=== PATIENT | male | born 1930 | race Caucasian/White ===

== ENCOUNTER 2016-09-30 17:00 | Emergency (ER) | payer MEDICARE, OTHER ==
[~2016-09-30 17:00] MED LIST: AMLO5TAB2 PO; ASPI-482 PO; CELE200C PO; CLOP75TA PO; FINA5TAB4 PO; HYDR200T5 PO; MULT-658 PO; PRED5TAB PO; TAMS0.4C2 PO; THIA100T43 PO; VALS1TAB18 PO
[2016-09-30 17:52] VITALS: BP 163/90
--- NOTE | 2016-09-30 18:52 | PHYS DOC ---
Past Medical History Past Medical History: Other Additional Past Medical Histor: CANCER OF THROAT WITH RADIATION [place] Past Surgical History: Appendectomy Alcohol Use: None Drug Use: None Adult General Chief Complaint Chief Complaint: LOWER BACK PAIN OR INJURY HPI HPI Patient is a 85 year old male who presents with mild low back pain after falling 2 days ago. Patient states he was trying to help the , he states he lifted the to transfer her from wheelchair and fell on his buttocks. Patient denies any loss of consciousness. Patient states a week ago he also fell face forward and was not evaluated anywhere. Patient states he is on Plavix. Review of Systems Review of Systems Constitutional: Denies fever or chills [] Eyes: Facial contusions HENT: Denies nasal congestion or sore throat [] Respiratory: Denies cough or shortness of breath [] Cardiovascular: No additional information not addressed in HPI [] GI: Denies abdominal pain, nausea, vomiting, bloody stools or diarrhea [] : Denies dysuria or hematuria [] Musculoskeletal: Low back pain] Integument: Denies rash or skin lesions [] Neurologic: Denies headache, focal weakness or sensory changes [] Endocrine: Denies polyuria or polydipsia [] Allergies Allergies Allergies Coded Allergies Type Severity Reaction Last Updated Verified No Known Drug Allergies 12/23/14 No Physical Exam Physical Exam Constitutional: Well developed, well nourished, no acute distress, non-toxic appearance. [] HENT: Normocephalic, atraumatic, bilateral external ears normal, oropharynx moist, no oral exudates, nose normal. [] Eyes: PERRLA, EOMI, conjunctiva normal, patient has mild periorbital ecchymosis bilaterally. Neck: Normal range of motion, no tenderness, supple, no stridor. [] Cardiovascular:Heart rate regular rhythm, no murmur [] Lungs & Thorax: Bilateral breath sounds clear to auscultation [] Abdomen: Bowel sounds normal, soft, no tenderness, no masses, no pulsatile masses. [] Skin: Bruises to the upper face. Extremities: No tenderness, no cyanosis, no clubbing, ROM intact, no edema. [] Neurologic: Alert and oriented X 3, normal motor function, normal sensory function, no focal deficits noted. [] Cranial nerves II through XII intact Psychologic: Affect normal, judgement normal, mood normal. [] Current Patient Data Vital Signs Vital Signs Date Time Temp Pulse Resp B/P Pulse Ox O2 Delivery O2 Flow Rate FiO2 09/30/16 17:52 97.9 71 20 100 Room Air 97.9 EKG EKG [] Radiology/Procedures Radiology/Procedures [] Course & Med Decision Making Course & Med Decision Making Pertinent Labs and Imaging studies reviewed. (See chart for details) Patient is in the ED with facial contusions after falling a week ago and back pain after falling 2 days ago. Patient and daughter decided to sign out AMA stating they could not wait any longer for further testing. Both of them are alert and oriented and able to make decisions on their own. They were given risks of leaving AMA including . They state they will follow up with patient's PCP on Monday Dragon Disclaimer Dragon Disclaimer This electronic medical record was generated, in whole or in part, using a voice recognition dictation system. Departure Departure Impression: Primary Impression: Fall from standing Additional Impressions: Facial contusion Low back pain Disposition: AGAINST MEDICAL ADVICE Condition: STABLE Referrals: CARO ANN MD (PCP) Problem Qualifiers Primary Impression: Fall from standing Encounter type: initial encounter Qualified Code: W19.XXXA - Unspecified fall, initial encounter Additional Impressions: Facial contusion Encounter type: initial encounter Qualified Code: S00.83XA - Contusion of other part of head, initial encounter Low back pain Chronicity: acute Back pain laterality: bilateral Sciatica presence: without sciatica Qualified Code: M54.5 - Low back pain NATALIA PARIKH APRN Sep 30, 2016 18:52
== END 2016-09-30 18:51 | disposition left against medical advice (07) ==
LOC: ER 17:00
DX: S00.83XA Contusion of other part of head, initial encounter (principal); S00.12XA Contusion of left eyelid and periocular area, initial encounter; S00.11XA Contusion of right eyelid and periocular area, initial encounter; M54.5 Low back pain; W18.39XA Other fall on same level, initial encounter; Y93.F2 Activity, caregiving, lifting; Y92.89 Other specified places as the place of occurrence of the external cause; Y99.8 Other external cause status
CPT/HCPCS: 99281

== ENCOUNTER 2020-05-02 22:17 | Inpatient (IN) | payer MEDICARE, OTHER ==
[~2020-05-02] VITALS: Ht 185.4 cm; Wt 87.5 kg
[~2020-05-02 22:17] MED LIST changes: +AMLO-186 PO; -AMLO5TAB2 PO
[2020-05-02 23:03] LABS: BILIRUBIN,URINE NEGATIVE (NEG); CLARITY,URINE CLEAR; COLOR,URINE AMBER; NITRITE,URINE NEGATIVE (NEG); PH,URINE 5.5 (<5.0-8.0); PROTEIN,URINE NEGATIVE (NEG-TRACE); UROBILINOGEN,URINE 0.2 mg/dL (0.2 mg/dL)
[2020-05-02 23:11] LABS: BASO # 0.1 x10^3/uL (0.0-0.2); BASO % 1 % (0-3); EOS # 0.2 x10^3/uL (0.0-0.7); EOS % 2 % (0-3); HEMATOCRIT 30.1 % (39.0-53.0); HEMOGLOBIN 10.1 g/dL (13.0-17.5); LYMPH # 0.8 x10^3/uL (1.0-4.8); LYMPH % 9 % (24-48); MEAN CORPUSCULAR HEMOGLOBIN 30 pg (25-35); MEAN CORPUSCULAR HGB CONC 34 g/dL (31-37); MEAN CORPUSCULAR VOLUME 88 fL (79-100); MONO # 1.2 x10^3/uL (0.0-1.1); MONO % 13 % (0-9); NEUT # 6.6 x10^3/uL (1.8-7.7); NEUT % 75 % (31-73); PLATELET COUNT 255 x10^3/uL (140-400); RED BLOOD COUNT 3.41 x10^6/uL (4.30-5.70); RED CELL DISTRIBUTION WIDTH 14.6 % (11.5-14.5); WHITE BLOOD COUNT 8.8 x10^3/uL (4.0-11.0)
[2020-05-02 23:11] LABS: RBC,URINE 20-40 /HPF (0-2); WBC,URINE OCC /HPF (0-4)
[2020-05-02 23:12] LABS: AMORPHOUS SEDIMENT,UR PRESENT /HPF; BACTERIA,URINE 0 /HPF (0-FEW)
[2020-05-02 23:19] LABS: CREATININE 2.9 mg/dL (0.7-1.3); GFR 20.6; POTASSIUM 4.4 mmol/L (3.5-5.1)
--- NOTE | 2020-05-02 23:20 | PHYS DOC ---
Past Medical History Past Medical History: Other Additional Past Medical Histor: CANCER OF THROAT WITH RADIATION [place] Past Surgical History: Appendectomy Smoking Status: Former Smoker Alcohol Use: None Drug Use: None General Adult EDM: Chief Complaint: URINARY FREQUENCY HPI: HPI: Patient is a 89 year old male brought in by son for evaluation urinary frequency and altered mental status. Son states patient been going to the bathroom multiple x3-4 times an hour. Over the last 2 to 3 hours family has noticed increased confusion. Patient is alert to self and birthday only. Patient without focal neurological weakness. Review of Systems: Review of Systems: Unable to obtain due to confusion positive urinary frequency Neuro positive confusion Heart Score: Risk Factors: Risk Factors: DM, Current or recent (<one month) smoker, HTN, HLP, family history of CAD, obesity. Risk Scores: Score 0 - 3: 2.5% MACE over next 6 weeks - Discharge Home Score 4 - 6: 20.3% MACE over next 6 weeks - Admit for Clinical Observation Score 7 - 10: 72.7% MACE over next 6 weeks - Early Invasive Strategies Allergies: Allergies: Allergies Coded Allergies Type Severity Reaction Last Updated Verified No Known Drug Allergies 12/23/14 No Physical Exam: PE: Constitutional: Well developed, well nourished, no acute distress, non-toxic appearance. [] HENT: Normocephalic, atraumatic, bilateral external ears normal, oropharynx moist, no oral exudates, nose normal. [] Eyes: PERRLA, EOMI, conjunctiva normal, no discharge. [] Neck: Normal range of motion, no tenderness, supple, no stridor. [] Cardiovascular:Heart rate regular rhythm, no murmur [] Lungs & Thorax: Bilateral breath sounds clear to auscultation [] Abdomen: Bowel sounds normal, soft, no tenderness, no masses, no pulsatile masses. [] Skin: Warm, dry, no erythema, no rash. [] Back: No tenderness, no CVA tenderness. [] Extremities: No tenderness, no cyanosis, no clubbing, ROM intact, no edema. [] Neurologic: Alert , normal motor function, normal sensory function, no focal deficits noted. [] Psychologic: Affect normal, judgement normal, mood normal. [] Current Patient Data: Labs: Laboratory Tests Test 05/02/20 22:55 05/02/20 23:04 Urine Collection Type U cath Urine Color Magda Urine Clarity Clear Urine pH 5.5 (<5.0-8.0) Urine Specific Manito 1.015 (1.000-1.030) Urine Protein Negative mg/dL (NEG-TRACE) Urine Glucose (UA) Negative mg/dL (NEG) Urine Ketones (Stick) Negative mg/dL (NEG) Urine Blood Moderate (NEG) Urine Nitrite Negative (NEG) Urine Bilirubin Negative (NEG) Urine Urobilinogen Dipstick 0.2 mg/dL (0.2 mg/dL) Urine Leukocyte Esterase Negative (NEG) Urine RBC 20-40 /HPF (0-2) Urine WBC Occ /HPF (0-4) Urine Squamous Epithelial Cells Occ /LPF Urine Amorphous Sediment Present /HPF Urine Bacteria 0 /HPF (0-FEW) Urine Mucus Slight /LPF White Blood Count 8.8 x10^3/uL (4.0-11.0) Red Blood Count 3.41 x10^6/uL (4.30-5.70) L Hemoglobin 10.1 g/dL (13.0-17.5) L Hematocrit 30.1 % (39.0-53.0) L Mean Corpuscular Volume 88 fL (79-100) Mean Corpuscular Hemoglobin 30 pg (25-35) Mean Corpuscular Hemoglobin Concent 34 g/dL (31-37) Red Cell Distribution Width 14.6 % (11.5-14.5) H Platelet Count 255 x10^3/uL (140-400) Neutrophils (%) (Auto) 75 % (31-73) H Lymphocytes (%) (Auto) 9 % (24-48) L Monocytes (%) (Auto) 13 % (0-9) H Eosinophils (%) (Auto) 2 % (0-3) Basophils (%) (Auto) 1 % (0-3) Neutrophils # (Auto) 6.6 x10^3/uL (1.8-7.7) Lymphocytes # (Auto) 0.8 x10^3/uL (1.0-4.8) L Monocytes # (Auto) 1.2 x10^3/uL (0.0-1.1) H Eosinophils # (Auto) 0.2 x10^3/uL (0.0-0.7) Basophils # (Auto) 0.1 x10^3/uL (0.0-0.2) Laboratory Tests 05/02/20 23:04 EKG: EKG: [] Radiology/Procedures: Radiology/Procedures: [] Course & Med Decision Making: Course & Med Decision Making Pertinent Labs and Imaging studies reviewed. (See chart for details) [] Patient was evaluated for chief complaint. Work-up consisted of laboratory analysis. Nursing obtained urine via straight cath and drained 800 cc. Chong catheter was reinserted and placed to gravity. Patient treatment included IV fluids. Discussed patient with Dr. Aragno. Ultrasound renal ordered for the a.m. Consult to Dr. Shayla Urbina Disclaimer: Ciara Disclaimer: This electronic medical record was generated, in whole or in part, using a voice recognition dictation system. Departure Departure Impression: Primary Impression: Urinary tract infection Additional Impressions: Confusion Urinary retention Disposition: ADMITTED INPT THIS HOSP Admitting Physician: Neftali Arango Condition: STABLE Referrals: NEFTALI ARANGO MD (PCP) EDGAR PLATA DO May 02, 2020 23:20
[2020-05-02 23:27] LABS: ALBUMIN 3.5 g/dL (3.4-5.0); ALBUMIN/GLOBULIN RATIO 0.9 (1.0-1.7); TOTAL BILIRUBIN 0.5 mg/dL (0.2-1.0); TOTAL PROTEIN 7.6 g/dL (6.4-8.2)
[2020-05-02] MEDS ORDERED: ONDANSETRON PF 4 MG/2 ML VIAL. IV PRN (23:45)
[2020-05-03] MEDS ORDERED: IV NORMAL SALINE 1000ML BAG 1,000 ML IV ONE
[2020-05-03 02:10] VITALS: BP 138/65
[2020-05-03 04:58] LABS: CALCIUM 8.6 mg/dL (8.5-10.1); CREATININE 2.3 mg/dL (0.7-1.3); GFR 26.9; POTASSIUM 3.5 mmol/L (3.5-5.1)
[2020-05-03 06:59] VITALS: BP 141/59
--- NOTE | 2020-05-03 09:30 | RAD ---
Renal ultrasound complete: Reason for examination: Acute renal failure. Urinary retention. The right kidney measures 9.7 x 4.2 x 3.8 cm in greatest dimension with normal cortical medullary differentiation and good vascular flow. No focal mass or hydronephrosis is seen. The left kidney was not able to be visualized due to bowel gas. The bladder is not distended with Chong catheter in place. IMPRESSION: Limited examination. No focal abnormality seen at the visualized right kidney. The left kidney was unable to be visualized due to bowel gas. Electronically signed by: Desiree Sinclair MD (05/03/2020 9:27 AM) [id number]
[2020-05-03] MEDS ORDERED: MAGNESIUM HYDROXIDE 2,400 MG/30 ML ORAL.SUSP. PO PRN (10:30)
[2020-05-03] MEDS: IV 1/2 NORMAL SALINE 1,000 ML IV SCH ×2 (10:46→21:58)
[2020-05-03 11:00] VITALS: BP 145/86
--- NOTE | 2020-05-03 11:10 | PDOC ---
Provider Note Date of Service: DATE: 05/03/20 TIME: 11:10 Provider Note history and physical dictated # [id number] Justifications for Admission Other Justification CARO ANN MD May 03, 2020 11:10
--- NOTE | 2020-05-03 11:30 | HP ---
ADMIT DATE: 05/03/2020 LOCATION: He is in room 200. HISTORY OF PRESENT ILLNESS: The patient is an 89-year-old white male with a history of hypertension and chronic kidney disease stage 3 as well as memory problems, peripheral arterial disease, osteoarthritis, and benign prostatic hypertrophy, who was admitted to [facility] through Emergency Room on 05/03/2020 when the patient's son brought him to the Emergency Room at [facility] for increased urine frequency and altered mental status. Apparently, he was urinating 3-4 times an hour. In the last 2-3 hours prior to admission, the family noted increased confusion. He was subsequently admitted to the hospital for further evaluation and treatment. In the Emergency Room, he had a white count of 8.8 with hemoglobin 10.1 and his BUN was 67, creatinine 2.9. His baseline serum creatinine is 1.7. His urinalysis showed 20-40 red cells and occasional white blood cell. Chong catheter was placed. He had an ultrasound of his kidneys done, which showed no evidence of hydronephrosis on the right, bowel gas obscured visualization of the kidney on the left side. Today, the patient is sitting up in a chair and offers no complaints. He does have some chronic memory problems. Recent B12 and thyroid function tests were normal, done in the office. He is admitted for further evaluation of his acute kidney injury on top of chronic kidney disease and metabolic encephalopathy. ALLERGIES: None. MEDICATIONS: Prior to admission include amlodipine 5 mg every day, hydrochlorothiazide 12.5 mg every day, losartan 100 mg every day, and tamsulosin 0.4 mg every day. PAST MEDICAL HISTORY: Significant for cancer of the throat, treated with chemo and radiation therapy in 2004. He had bilateral carotid endarterectomy in 2014 and has had an appendectomy, cholecystectomy, tonsillectomy, and cataract extractions. He has hypertension, chronic kidney disease stage 3 with baseline serum creatinine 1.7, some chronic memory problems. He probably does have dementia at least mild cognitive deficits. He also has osteoarthritis, peripheral arterial disease manifested by the carotid endarterectomy, benign prostatic hypertrophy. SOCIAL HISTORY: He does not drink alcohol nor does he smoke cigarettes. He did drink in the past, I believe socially. He is . He uses a walker at home. FAMILY HISTORY: Noncontributory. REVIEW OF SYSTEMS: GENERAL: Denies any fever, chills or sweats in the last 3 days. CARDIOVASCULAR: No chest pain. PULMONARY: No cough or shortness of breath. GASTROINTESTINAL: No diarrhea. ENDOCRINE: No diabetes mellitus. SKIN: No rashes. The rest of systems reviewed are negative except as stated in history of present illness. PHYSICAL EXAMINATION: VITAL SIGNS: Temperature 97.7 degrees, heart rate 64, respiratory rate 19, blood pressure 141/59, oxygen saturation 99% on room air. HEENT: Eyes: Gaze is conjugate. Mouth: Tongue is midline. NECK: There is no cervical lymphadenopathy or thyroid enlargement. HEART: Reveals an S1, S2. There is no S3 or murmur. LUNGS: Clear posteriorly. ABDOMEN: Soft in sitting position. EXTREMITIES: Lower extremities without edema. SKIN: No rashes. NEUROLOGIC: He is hard of hearing, but answers questions appropriately. He has no focal weakness in the arms or legs. SKIN: No rashes. LABORATORY DATA: Review of his laboratory tests, urinalysis showed 20-40 red cells and occasional white blood cell. Sodium is 139, potassium 4.4, chloride 105, total CO2 of 25, BUN 67, creatinine was 2.9, blood sugar 108. Liver function tests normal. Albumin 3.5. Today, the sodium is 142, potassium 3.5, chloride 107, total CO2 of 23, BUN 60, creatinine 2.3 with a blood sugar 124 and a calcium level of 8.6. His white count was 8.8, hemoglobin 10.1 with a platelet count 355,000, 75 polys and 9 lymphocytes. I do not see a chest x-ray done or EKG report. ASSESSMENT: 1. Acute kidney injury on top of chronic kidney disease stage 3. Certainly, the acute kidney injury could be secondary to decreased oral fluid intake and also contributed to the hydrochlorothiazide and losartan in the setting of decreased fluid intake could have contributed to the acute kidney injury. There is no evidence of hydronephrosis. 2. Metabolic encephalopathy. 3. Suspected dementia. 4. Hypertension. 5. Peripheral arterial disease. 6. Anemia. PLAN: At this time is to consult Dr. Mcguire for Nephrology. We will start him on IV one-half normal saline at 75 mL an hour. Repeat CBC and BMP tomorrow and get some iron studies. We will order some physical and occupational therapy. Order SCDs for deep vein thrombosis prophylaxis. Discontinue the losartan and hydrochlorothiazide with acute kidney injury. We will continue amlodipine and tamsulosin. We will get a CAT scan of the head without contrast because of the memory problems. As mentioned, recent thyroid function test and B12 levels in the office were normal. CARO ANN MD DR: WALTER/rochelle JOB#: [id number] / [id number]
[2020-05-03] MEDS: TAMSULOSIN 0.4 MG CAP.ER.24H. PO SCH (11:55)
[2020-05-03] MEDS: amLODIPine BESYLATE 5 MG TABLET PO SCH (11:55)
--- NOTE | 2020-05-03 13:37 | RAD ---
Single view chest dated 05/03/2020. COMPARISON: None. CLINICAL INDICATION: Hypertension. FINDINGS: Single upright portable exam performed. Heart and mediastinal contours within normal limits. Lungs are somewhat hyperinflated but otherwise clear. No consolidation or pleural effusion. No pneumothorax. IMPRESSION: No acute radiographic abnormality. Electronically signed by: Neftali King MD (05/03/2020 1:34 PM) LUIS
--- NOTE | 2020-05-03 13:47 | RAD ---
CT head without contrast dated 05/03/2020. Comparison made to 11/24/2015. CLINICAL INDICATION: Confusion. TECHNIQUE: Routine axial imaging of the head performed without the administration of intravenous contrast. One or more of the following individualized dose reduction techniques were utilized for this examination: 1. Automated exposure control 2. Adjustment of the mA and/or kV according to patient size 3. Use of iterative reconstruction technique. FINDINGS: Ventricles and sulci are mildly prominent for age. No midline shift or mass effect. Minimal patchy low density in the deep/subcortical periventricular white matter. No hemorrhage or extra-axial collection. Posterior fossa and brainstem unremarkable. Moderate mucosal thickening of the right maxillary sinus. The visualized paranasal sinuses and mastoid air cells are otherwise clear. No apparent calvarial abnormality. IMPRESSION: 1. No evidence of acute intracranial hemorrhage or mass. 2. Mild chronic small vessel ischemic changes and atrophy. 3. Mild sinus disease. Electronically signed by: Neftali King MD (05/03/2020 1:44 PM) BETHEL
--- NOTE | 2020-05-03 14:14 | CONS ---
DATE OF CONSULTATION: REQUESTING PHYSICIAN: Dr. Arango. REASON FOR CONSULTATION: Renal failure. HISTORY OF PRESENT ILLNESS: An 89-year-old female with history of hypertension and chronic kidney disease stage 3. He currently is admitted with worsening renal function. He is felt to have underlying dementia. HOME MEDICATIONS: Include losartan, hydrochlorothiazide. There has been no nausea, vomiting, diarrhea. PAST MEDICAL HISTORY: Hypertension, chronic kidney disease stage 3, throat cancer, status post chemotherapy, radiation therapy in 2004, peripheral vascular disease. PAST SURGICAL HISTORY: Carotid endarterectomy 2014, appendectomy, cholecystectomy, tonsillectomy, cataract extractions, BPH. ALLERGIES: None. MEDICATIONS: Reviewed per medication list. FAMILY HISTORY: Noncontributory. SOCIAL HISTORY: The patient resides with assistance, is . Uses a walker. No alcohol use. Does not smoke cigarettes. REVIEW OF SYSTEMS: No headache, sinus problem, nasal drainage, epistaxis, change in vision or hearing. No difficulty swallowing. No fever, chills, cough, sputum production, hemoptysis. No chest pain, shortness of breath, PND, orthopnea, dyspnea on exertion. No abdominal pain. No nausea, vomiting, diarrhea. No seizures. PHYSICAL EXAMINATION: GENERAL APPEARANCE: The patient is awake, conversant. HEENT: Clear. Mouth is dry. NECK: No increased JVD. LUNGS: Clear. CARDIAC: Without S3 or rub. ABDOMEN: Soft, nontender, no bruits. EXTREMITIES: No edema. NEUROLOGIC: Nonfocal, nonlocalized. PSYCHIATRIC: Reduced attention to detail, appropriate affect. LABORATORY DATA: White count 8, hemoglobin 10, hematocrit 30. Sodium 142, potassium 3.5, chloride 107, CO2 of 23, BUN 60, creatinine 2.3, improved from creatinine of 2.9 on admission. IMPRESSION: 1. 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 2. Likely prerenal state due to reduced intravascular volume. RECOMMENDATIONS: IV fluid administration and trend labs. We will follow. CARO LUCAS MD DR: SUJATHA/rochelle JOB#: [id number] / [id number]
[2020-05-03 15:02] VITALS: BP 139/71
--- NOTE | 2020-05-03 15:03 | EKG ---
[facility] [address] [place] [address] Test Date: 2020-05-03 Test Time: 14:45:10 Pat Name: LOUISE GARCÍA Department: Room: 200 1 Gender: M Occ Ther: : 1930 Requested By: CARO ANN Order Number: [id number] Reading MD: Measurements Intervals [place] Rate: 58 P: 50 OR: 204 QRS: 17 QRSD: 104 T: 24 QT: 464 QTc: 459 Interpretive Statements SINUS RHYTHM NORMAL ECG RI6.02 No previous ECG available for comparison
[2020-05-03 19:00] VITALS: BP 162/82
--- NOTE | 2020-05-03 19:15 | NUR ---
Pt in bed assessment completed vss poc explained, pt assisted to the restroom with 1 assist and a walker, pt denied pain at time of assessment will resume care and continue to monitor pt.
[2020-05-03] MEDS: ACETAMINOPHEN 325 MG TABLET. PO PRN (23:01)
[2020-05-03 23:09] VITALS: BP 175/76
[2020-05-04 03:02] VITALS: BP 148/69
[2020-05-04 04:47] LABS: BASO # 0.1 x10^3/uL (0.0-0.2); BASO % 1 % (0-3); EOS # 0.3 x10^3/uL (0.0-0.7); EOS % 5 % (0-3); HEMATOCRIT 27.8 % (39.0-53.0); HEMOGLOBIN 9.7 g/dL (13.0-17.5); LYMPH % 15 % (24-48); MEAN CORPUSCULAR HEMOGLOBIN 31 pg (25-35); MEAN CORPUSCULAR HGB CONC 35 g/dL (31-37); MEAN CORPUSCULAR VOLUME 88 fL (79-100); MONO # 0.9 x10^3/uL (0.0-1.1); MONO % 13 % (0-9); NEUT # 4.7 x10^3/uL (1.8-7.7); NEUT % 67 % (31-73); PLATELET COUNT 209 x10^3/uL (140-400); RED BLOOD COUNT 3.16 x10^6/uL (4.30-5.70); RED CELL DISTRIBUTION WIDTH 14.2 % (11.5-14.5)
[2020-05-04 05:06] LABS: CALCIUM 8.6 mg/dL (8.5-10.1); CREATININE 1.6 mg/dL (0.7-1.3); GFR 40.9; POTASSIUM 3.7 mmol/L (3.5-5.1)
--- NOTE | 2020-05-04 06:03 | NUR ---
Pt up and down throughout the night c/o needing to void, pt pulling on malagon catheter, pt malagon cath dc'd and pt was bladder scanned pt had 1150 in bladder will reinsert malagon.
--- NOTE | 2020-05-04 06:49 | NUR ---
16Fr malagon catheter reinserted with 1250 tea color urine out will monitor pt.
[2020-05-04 07:00] VITALS: BP 156/84
[2020-05-04] MEDS: amLODIPine BESYLATE 5 MG TABLET PO SCH (09:37)
[2020-05-04] MEDS: TAMSULOSIN 0.4 MG CAP.ER.24H. PO SCH (09:37)
[2020-05-04] MEDS: ACETAMINOPHEN 325 MG TABLET. PO PRN (09:38)
--- NOTE | 2020-05-04 10:31 | PDOC ---
PROGRESS NOTES Date of Service DATE: 05/04/20 TIME: 10:28 Subjective Subjective feels better. bun and creatinine better. lab reviewed. bp is high and will increase amlodipine. ct head negative. Objective Objective Vital Signs Date Time Temp Pulse Resp B/P (MAP) Pulse Ox O2 Delivery O2 Flow Rate FiO2 05/04/20 09:37 68 156/84 05/04/20 07:00 97.1 20 100 Room Air 97.1 Intake and Output 05/04/20 07:00 Intake Total 1510 ml Output Total 3400 ml Balance -1890 ml Intake Oral 1510 ml Output Urine Total 3400 ml # Bowel Movements 1 Physical Exam Abdomen: Soft Heart: Regular rate, Normal S1, Normal S2 Extremities: No edema General: Alert HEENT: Atraumatic Lungs: Clear to auscultation Neuro: Normal speech Psych/Mental Status: Mood NL Skin: No rashes Assessment Assessment Problems1. Acute kidney injury on top of chronic kidney disease stage 3. Certainly, the acute kidney injury could be secondary to decreased oral fluid intake and also contributed to the hydrochlorothiazide and losartan in the setting of decreased fluid intake could have contributed to the acute kidney injury. TOM due to vasomotor nephropathy. improved with iv fluids is no evidence of hydronephrosis. 2. Metabolic encephalopathy. improved 3. Suspected dementia. 4. Hypertension.bp is high 5. Peripheral arterial disease. 6. Anemia. Medical Problems: (1) Confusion Status: Acute (2) Urinary retention Status: Acute (3) Urinary tract infection Status: Acute Plan Plan of Care decrease iv fluids increase amlodipine will keep off hctz and losartan PT and OT [facility] screen Comment Review of Relevant I have reviewed the following items kaveh (where applicable) has been applied. Labs Laboratory Tests Test 05/02/20 22:55 05/02/20 23:04 05/03/20 04:15 05/04/20 03:30 Urine Collection Type U cath Urine Color Magda Urine Clarity Clear Urine pH 5.5 (<5.0-8.0) Urine Specific [place] 1.015 (1.000-1.030) Urine Protein Negative mg/dL (NEG-TRACE) Urine Glucose (UA) Negative mg/dL (NEG) Urine Ketones (Stick) Negative mg/dL (NEG) Urine Blood Moderate (NEG) Urine Nitrite Negative (NEG) Urine Bilirubin Negative (NEG) Urine Urobilinogen Dipstick 0.2 mg/dL (0.2 mg/dL) Urine Leukocyte Esterase Negative (NEG) Urine RBC 20-40 /HPF (0-2) Urine WBC Occ /HPF (0-4) Urine Squamous Epithelial Cells Occ /LPF Urine Amorphous Sediment Present /HPF Urine Bacteria 0 /HPF (0-FEW) Urine Mucus Slight /LPF White Blood Count 8.8 x10^3/uL (4.0-11.0) 7.0 x10^3/uL (4.0-11.0) Red Blood Count 3.41 x10^6/uL (4.30-5.70) 3.16 x10^6/uL (4.30-5.70) Hemoglobin 10.1 g/dL (13.0-17.5) 9.7 g/dL (13.0-17.5) Hematocrit 30.1 % (39.0-53.0) 27.8 % (39.0-53.0) Mean Corpuscular Volume 88 fL (79-100) 88 fL (79-100) Mean Corpuscular Hemoglobin 30 pg (25-35) 31 pg (25-35) Mean Corpuscular Hemoglobin Concent 34 g/dL (31-37) 35 g/dL (31-37) Red Cell Distribution Width 14.6 % (11.5-14.5) 14.2 % (11.5-14.5) Platelet Count 255 x10^3/uL (140-400) 209 x10^3/uL (140-400) Neutrophils (%) (Auto) 75 % (31-73) 67 % (31-73) Lymphocytes (%) (Auto) 9 % (24-48) 15 % (24-48) Monocytes (%) (Auto) 13 % (0-9) 13 % (0-9) Eosinophils (%) (Auto) 2 % (0-3) 5 % (0-3) Basophils (%) (Auto) 1 % (0-3) 1 % (0-3) Neutrophils # (Auto) 6.6 x10^3/uL (1.8-7.7) 4.7 x10^3/uL (1.8-7.7) Lymphocytes # (Auto) 0.8 x10^3/uL (1.0-4.8) 1.0 x10^3/uL (1.0-4.8) Monocytes # (Auto) 1.2 x10^3/uL (0.0-1.1) 0.9 x10^3/uL (0.0-1.1) Eosinophils # (Auto) 0.2 x10^3/uL (0.0-0.7) 0.3 x10^3/uL (0.0-0.7) Basophils # (Auto) 0.1 x10^3/uL (0.0-0.2) 0.1 x10^3/uL (0.0-0.2) Sodium Level 139 mmol/L (136-145) 142 mmol/L (136-145) 141 mmol/L (136-145) Potassium Level 4.4 mmol/L (3.5-5.1) 3.5 mmol/L (3.5-5.1) 3.7 mmol/L (3.5-5.1) Chloride Level 105 mmol/L (98-107) 107 mmol/L (98-107) 106 mmol/L (98-107) Carbon Dioxide Level 25 mmol/L (21-32) 23 mmol/L (21-32) 24 mmol/L (21-32) Anion Gap 9 (6-14) 12 (6-14) 11 (6-14) Blood Urea Nitrogen 67 mg/dL (8-26) 60 mg/dL (8-26) 42 mg/dL (8-26) Creatinine 2.9 mg/dL (0.7-1.3) 2.3 mg/dL (0.7-1.3) 1.6 mg/dL (0.7-1.3) Estimated GFR (Cockcroft-Gault) 20.6 26.9 40.9 BUN/Creatinine Ratio 23 (6-20) Glucose Level 108 mg/dL (70-99) 124 mg/dL (70-99) 85 mg/dL (70-99) Calcium Level 9.0 mg/dL (8.5-10.1) 8.6 mg/dL (8.5-10.1) 8.6 mg/dL (8.5-10.1) Total Bilirubin 0.5 mg/dL (0.2-1.0) Aspartate Amino Transf (AST/SGOT) 23 U/L (15-37) Alanine Aminotransferase (ALT/SGPT) 18 U/L (16-63) Alkaline Phosphatase 69 U/L (46-116) Total Protein 7.6 g/dL (6.4-8.2) Albumin 3.5 g/dL (3.4-5.0) Albumin/Globulin Ratio 0.9 (1.0-1.7) Iron Level 28 ug/dL (65-175) Total Iron Binding Capacity 189 ug/dL (250-450) Iron Saturation 15 % (15-34) Ferritin 272 ng/mL (26-388) Laboratory Tests Test 05/04/20 03:30 White Blood Count 7.0 x10^3/uL (4.0-11.0) Red Blood Count 3.16 x10^6/uL (4.30-5.70) Hemoglobin 9.7 g/dL (13.0-17.5) Hematocrit 27.8 % (39.0-53.0) Mean Corpuscular Volume 88 fL (79-100) Mean Corpuscular Hemoglobin 31 pg (25-35) Mean Corpuscular Hemoglobin Concent 35 g/dL (31-37) Red Cell Distribution Width 14.2 % (11.5-14.5) Platelet Count 209 x10^3/uL (140-400) Neutrophils (%) (Auto) 67 % (31-73) Lymphocytes (%) (Auto) 15 % (24-48) Monocytes (%) (Auto) 13 % (0-9) Eosinophils (%) (Auto) 5 % (0-3) Basophils (%) (Auto) 1 % (0-3) Neutrophils # (Auto) 4.7 x10^3/uL (1.8-7.7) Lymphocytes # (Auto) 1.0 x10^3/uL (1.0-4.8) Monocytes # (Auto) 0.9 x10^3/uL (0.0-1.1) Eosinophils # (Auto) 0.3 x10^3/uL (0.0-0.7) Basophils # (Auto) 0.1 x10^3/uL (0.0-0.2) Sodium Level 141 mmol/L (136-145) Potassium Level 3.7 mmol/L (3.5-5.1) Chloride Level 106 mmol/L (98-107) Carbon Dioxide Level 24 mmol/L (21-32) Anion Gap 11 (6-14) Blood Urea Nitrogen 42 mg/dL (8-26) Creatinine 1.6 mg/dL (0.7-1.3) Estimated GFR (Cockcroft-Gault) 40.9 Glucose Level 85 mg/dL (70-99) Calcium Level 8.6 mg/dL (8.5-10.1) Iron Level 28 ug/dL (65-175) Total Iron Binding Capacity 189 ug/dL (250-450) Iron Saturation 15 % (15-34) Ferritin 272 ng/mL (26-388) Medications Current Medications Sodium Chloride 1,000 ml @ 1,000 mls/hr 1X ONCE IV Last administered on 05/02/20at 23:54; Start 05/03/20 at 00:00; Stop 05/03/20 at 00:59; Status DC Ondansetron HCl (Zofran) 4 mg PRN Q8HRS PRN IV NAUSEA/VOMITING 1ST CHOICE; Start 05/02/20 at 23:45; Stop 05/03/20 at 23:44; Status DC Sodium Chloride 1,000 ml @ 40 mls/hr Q24H IV Last administered on 05/03/20at 21:58; Start 05/03/20 at 10:30 Acetaminophen (Tylenol) 650 mg PRN Q6HRS PRN PO MILD PAIN / TEMP > 100.3'F Last administered on 05/04/20at 09:38; Start 05/03/20 at 10:30 Magnesium Hydroxide (Milk Of Magnesia) 2,400 mg PRN DAILY PRN PO CONSTIPATION; Start 05/03/20 at 10:30 Tamsulosin HCl (Flomax) 0.4 mg DAILY PO Last administered on 05/04/20at 09:37; Start 05/03/20 at 11:30 Amlodipine Besylate (Norvasc) 5 mg DAILY PO Last administered on 05/04/20at 09:37; Start 05/03/20 at 11:30 Active Scripts Active Reported B-1 (Thiamine HCl) 100 Mg Tablet 100 Mg PO Centrum Silver Tablet (Multivits-Min/Fa/Lycopene/Lut) 1 Each Tablet 1 Each PO Aspir 81 (Aspirin) 81 Mg Tablet.dr 1 Tab PO DAILY Hydroxychloroquine Sulfate 200 Mg Tablet 1 Tab PO DAILY Clopidogrel (Clopidogrel Bisulfate) 75 Mg Tablet 1 Tab PO DAILY Prednisone 5 Mg Tablet 5 Mg PO DAILY Finasteride 5 Mg Tablet 1 Tab PO DAILY Tamsulosin Hcl 0.4 Mg Cap.er.24h 1 Cap PO DAILY Amlodipine Besylate 5 Mg Tablet 1 Tab PO DAILY Diovan Hct 320-12.5 Mg Tab (Valsartan/Hydrochlorothiazide) 1 Each Tablet 1 Tab PO DAILY Celebrex (Celecoxib) 200 Mg Capsule 1 Cap PO DAILY Vitals/I & O Vital Sign - Last 24 Hours 05/03/20 05/03/20 05/03/20 05/03/20 11:00 11:55 15:02 19:00 Temp 97.9 97.5 98.1 97.9 97.5 98.1 Pulse 55 58 56 75 Resp 16 18 18 B/P (MAP) 145/86 (105) 145/86 139/71 (93) 162/82 (108) Pulse Ox 96 97 100 O2 Delivery Room Air Room Air Room Air 05/03/20 05/03/20 05/04/20 05/04/20 19:15 23:09 03:02 07:00 Temp 97.7 98.3 97.1 97.7 98.3 97.1 Pulse 79 68 68 Resp 18 19 20 B/P (MAP) 175/76 (109) 148/69 (95) 156/84 (108) Pulse Ox 96 98 100 O2 Delivery Room Air Room Air Room Air Room Air 05/04/20 09:37 Pulse 68 B/P (MAP) 156/84 Intake and Output 05/03/20 05/03/20 05/04/20 15:00 23:00 07:00 Intake Total 360 ml 810 ml 340 ml Output Total 1000 ml 1100 ml 1300 ml Balance -640 ml -290 ml -960 ml Justifications for Admission Other Justification CARO ANN MD May 04, 2020 10:31
[2020-05-04] MEDS ORDERED: amLODIPine BESYLATE 5 MG TABLET PO ONE (10:45)
[2020-05-04 11:00] VITALS: BP 157/77
--- NOTE | 2020-05-04 11:41 | PDOC ---
Renal-Progress Notes Subjective Notes Notes FEELING BETTER History of Present Illness Hx of present illness STABLE Vitals Vitals Vital Signs Date Time Temp Pulse Resp B/P (MAP) Pulse Ox O2 Delivery O2 Flow Rate FiO2 05/04/20 09:37 68 156/84 05/04/20 08:00 Room Air 05/04/20 07:00 97.1 20 100 97.1 Weight Weight [ ] I.O. Intake and Output Intake and Output 05/04/20 07:00 Intake Total 1510 ml Output Total 3400 ml Balance -1890 ml Intake Oral 1510 ml Output Urine Total 3400 ml # Bowel Movements 1 Labs Labs Laboratory Tests Test 05/04/20 03:30 White Blood Count 7.0 x10^3/uL (4.0-11.0) Red Blood Count 3.16 x10^6/uL (4.30-5.70) Hemoglobin 9.7 g/dL (13.0-17.5) Hematocrit 27.8 % (39.0-53.0) Mean Corpuscular Volume 88 fL (79-100) Mean Corpuscular Hemoglobin 31 pg (25-35) Mean Corpuscular Hemoglobin Concent 35 g/dL (31-37) Red Cell Distribution Width 14.2 % (11.5-14.5) Platelet Count 209 x10^3/uL (140-400) Neutrophils (%) (Auto) 67 % (31-73) Lymphocytes (%) (Auto) 15 % (24-48) Monocytes (%) (Auto) 13 % (0-9) Eosinophils (%) (Auto) 5 % (0-3) Basophils (%) (Auto) 1 % (0-3) Neutrophils # (Auto) 4.7 x10^3/uL (1.8-7.7) Lymphocytes # (Auto) 1.0 x10^3/uL (1.0-4.8) Monocytes # (Auto) 0.9 x10^3/uL (0.0-1.1) Eosinophils # (Auto) 0.3 x10^3/uL (0.0-0.7) Basophils # (Auto) 0.1 x10^3/uL (0.0-0.2) Sodium Level 141 mmol/L (136-145) Potassium Level 3.7 mmol/L (3.5-5.1) Chloride Level 106 mmol/L (98-107) Carbon Dioxide Level 24 mmol/L (21-32) Anion Gap 11 (6-14) Blood Urea Nitrogen 42 mg/dL (8-26) Creatinine 1.6 mg/dL (0.7-1.3) Estimated GFR (Cockcroft-Gault) 40.9 Glucose Level 85 mg/dL (70-99) Calcium Level 8.6 mg/dL (8.5-10.1) Iron Level 28 ug/dL (65-175) Total Iron Binding Capacity 189 ug/dL (250-450) Iron Saturation 15 % (15-34) Ferritin 272 ng/mL (26-388) Review of Systems Constitutional: yes: alert Ears/Nose/Throat: Yes: no symptom reported Eyes: Yes: no symptom reported Pulmonary: Yes dyspnea Cardiovascular: Yes no symptom reported Gastrointestional: Yes: no symptom reported Genitourinary: Yes: no symptom reported Musculoskeletal: Yes: muscle stiffness Skin: Yes no symptom reported Psychiatric/Neurological: Yes: no symptom reported Endocrine: Yes: no symptom reported Physical Exam General Appearance: no apparent distress Skin: warm Respiratory: decreased breath sounds Heart: S1S2 Abdomen: soft, bowel sounds present Genitourinary: bladder flat Extremities: pulses present Neurology: alert Assessment Assessment IMP TOM-IMPROVING CR 2.9 TO 1.6 MET ENCEPHALOPATHY-BETTER UNDERLYING DEMENTIA LABILE HTN PLAN AGREE WITH INCREASE IN NORVASC LOW FLOW IVF'S CONT TO HOLD ARB AND DIURETICS ENC PO WILL FOLLOW DRU STODDARD MD May 04, 2020 11:41
--- NOTE | 2020-05-04 14:18 | NUR ---
SS following for discharge planning. SS reviewed pt chart and discussed with pt RN. Pt is from home with spouse and family and is currently on room air. PT/OT recommended [facility]. COVID19 test pending. SS contacted pt's son, Ed, , and discussed discharge planning and [facility]. Dr. Arango requesting [facility]. Pt's son reported that pt's spouse is at home on [facility]. He reported that he and his sisters care for pt at home. He reported that pt does not ambulate much at home anymore. He reported that pt's dementia has caused pt to be more confused. Pt's son declining inpatient rehabilitation at this time with concern that it would make pt's dementia worse. Pt's son reported that he would prefer for pt to return to home with family and [facility], ; fax [phone]. SS will continue to follow for discharge planning.
[2020-05-04 15:00] VITALS: BP 141/72
[2020-05-04] MEDS ORDERED: HYDR12.59 PO (18:12)
[2020-05-04] MEDS ORDERED: LOSA100T14 PO (18:12)
[2020-05-04] MEDS: IV 1/2 NORMAL SALINE 1,000 ML IV SCH (18:26)
[2020-05-04 19:13] VITALS: BP 151/74
--- NOTE | 2020-05-04 20:00 | NUR ---
Pt in bed assessment completed pt without c/o pain ,pt reoriented to surroundings call light in reach bed alarm set will resume care and continue to monitor pt.
[2020-05-04 22:37] VITALS: BP 142/73
[2020-05-05 02:56] VITALS: BP 152/82
[2020-05-05] MEDS: ACETAMINOPHEN 325 MG TABLET. PO PRN (02:59)
[2020-05-05 05:49] LABS: CALCIUM 8.6 mg/dL (8.5-10.1); CREATININE 1.3 mg/dL (0.7-1.3); POTASSIUM 3.7 mmol/L (3.5-5.1)
[2020-05-05 07:00] VITALS: BP 145/78
[2020-05-05] MEDS ORDERED: amLODIPine BESYLATE 10 MG TABLET PO SCH (09:00)
[2020-05-05] MEDS: TAMSULOSIN 0.4 MG CAP.ER.24H. PO SCH (09:25)
--- NOTE | 2020-05-05 10:29 | PDOC ---
PROGRESS NOTES Date of Service DATE: 05/05/20 TIME: 10:27 Subjective Subjective feels better. more alert. lab reviewed. well hydrated. discussed with nurse. family wants him home with home health and declines SNF and [facility]. Objective Objective Vital Signs Date Time Temp Pulse Resp B/P (MAP) Pulse Ox O2 Delivery O2 Flow Rate FiO2 05/05/20 09:25 68 145/78 05/05/20 07:00 97.9 18 96 Room Air 97.9 Intake and Output 05/05/20 07:00 Intake Total 890 ml Output Total 3035 ml Balance -2145 ml Intake Oral 890 ml Output Urine Total 3035 ml # Bowel Movements 3 Physical Exam Abdomen: Soft Heart: Regular rate, Normal S1, Normal S2 Extremities: No edema General: Alert, Cooperative, No acute distress HEENT: Atraumatic Lungs: Clear to auscultation Neuro: Normal speech Psych/Mental Status: Mood NL Skin: No rashes Assessment Assessment Problems acute kidney injury resolved chronic kidney disease stage 3 dementia metabolic encephalopathy resolved debility Medical Problems: (1) Confusion Status: Acute (2) Urinary retention Status: Acute (3) Urinary tract infection Status: Acute Plan Plan of Care dismiss today to home with HH d/c malagon and iv Comment Review of Relevant I have reviewed the following items kaveh (where applicable) has been applied. Labs Laboratory Tests Test 05/04/20 03:30 05/05/20 04:45 White Blood Count 7.0 x10^3/uL (4.0-11.0) Red Blood Count 3.16 x10^6/uL (4.30-5.70) Hemoglobin 9.7 g/dL (13.0-17.5) Hematocrit 27.8 % (39.0-53.0) Mean Corpuscular Volume 88 fL (79-100) Mean Corpuscular Hemoglobin 31 pg (25-35) Mean Corpuscular Hemoglobin Concent 35 g/dL (31-37) Red Cell Distribution Width 14.2 % (11.5-14.5) Platelet Count 209 x10^3/uL (140-400) Neutrophils (%) (Auto) 67 % (31-73) Lymphocytes (%) (Auto) 15 % (24-48) Monocytes (%) (Auto) 13 % (0-9) Eosinophils (%) (Auto) 5 % (0-3) Basophils (%) (Auto) 1 % (0-3) Neutrophils # (Auto) 4.7 x10^3/uL (1.8-7.7) Lymphocytes # (Auto) 1.0 x10^3/uL (1.0-4.8) Monocytes # (Auto) 0.9 x10^3/uL (0.0-1.1) Eosinophils # (Auto) 0.3 x10^3/uL (0.0-0.7) Basophils # (Auto) 0.1 x10^3/uL (0.0-0.2) Sodium Level 141 mmol/L (136-145) 141 mmol/L (136-145) Potassium Level 3.7 mmol/L (3.5-5.1) 3.7 mmol/L (3.5-5.1) Chloride Level 106 mmol/L (98-107) 107 mmol/L (98-107) Carbon Dioxide Level 24 mmol/L (21-32) 23 mmol/L (21-32) Anion Gap 11 (6-14) 11 (6-14) Blood Urea Nitrogen 42 mg/dL (8-26) 28 mg/dL (8-26) Creatinine 1.6 mg/dL (0.7-1.3) 1.3 mg/dL (0.7-1.3) Estimated GFR (Cockcroft-Gault) 40.9 52.0 Glucose Level 85 mg/dL (70-99) 79 mg/dL (70-99) Calcium Level 8.6 mg/dL (8.5-10.1) 8.6 mg/dL (8.5-10.1) Iron Level 28 ug/dL (65-175) Total Iron Binding Capacity 189 ug/dL (250-450) Iron Saturation 15 % (15-34) Ferritin 272 ng/mL (26-388) Laboratory Tests Test 05/05/20 04:45 Sodium Level 141 mmol/L (136-145) Potassium Level 3.7 mmol/L (3.5-5.1) Chloride Level 107 mmol/L (98-107) Carbon Dioxide Level 23 mmol/L (21-32) Anion Gap 11 (6-14) Blood Urea Nitrogen 28 mg/dL (8-26) Creatinine 1.3 mg/dL (0.7-1.3) Estimated GFR (Cockcroft-Gault) 52.0 Glucose Level 79 mg/dL (70-99) Calcium Level 8.6 mg/dL (8.5-10.1) Medications Current Medications Sodium Chloride 1,000 ml @ 1,000 mls/hr 1X ONCE IV Last administered on 05/02/20 23:54; Start 05/03/20 at 00:00; Stop 05/03/20 at 00:59; Status DC Ondansetron HCl (Zofran) 4 mg PRN Q8HRS PRN IV NAUSEA/VOMITING 1ST CHOICE; Start 05/02/20 at 23:45; Stop 05/03/20 at 23:44; Status DC Sodium Chloride 1,000 ml @ 40 mls/hr Q24H IV Last administered on 05/04/20at 18:26; Start 05/03/20 at 10:30 Acetaminophen (Tylenol) 650 mg PRN Q6HRS PRN PO MILD PAIN / TEMP > 100.3'F Last administered on 05/05/20at 02:59; Start 05/03/20 at 10:30 Magnesium Hydroxide (Milk Of Magnesia) 2,400 mg PRN DAILY PRN PO CONSTIPATION Last administered on 05/05/20at 09:25; Start 05/03/20 at 10:30 Tamsulosin HCl (Flomax) 0.4 mg DAILY PO Last administered on 05/05/20at 09:25; Start 05/03/20 at 11:30 Amlodipine Besylate (Norvasc) 5 mg DAILY PO Last administered on 05/04/20at 09:37; Start 05/03/20 at 11:30; Stop 05/04/20 at 10:28; Status DC Amlodipine Besylate (Norvasc) 10 mg DAILY PO Last administered on 05/05/20 09:25; Start 05/05/20 at 09:00 Amlodipine Besylate (Norvasc) 5 mg 1X ONCE PO Last administered on 05/04/20at 18:26; Start 05/04/20 at 10:45; Stop 05/04/20 at 10:46; Status DC Active Scripts Active Reported Losartan Potassium 100 Mg Tablet 100 Mg PO DAILY Hydrochlorothiazide 12.5 Mg Capsule 12.5 Mg PO DAILY Tamsulosin Hcl 0.4 Mg Cap.er.24h 1 Cap PO DAILY Amlodipine Besylate 5 Mg Tablet 1 Tab PO DAILY Vitals/I & O Vital Sign - Last 24 Hours 05/04/20 05/04/20 05/04/20 05/04/20 11:00 15:00 18:26 19:13 Temp 97.6 97.4 98.0 97.6 97.4 98.0 Pulse 65 68 68 66 Resp 20 20 18 B/P (MAP) 157/77 (103) 141/72 (95) 141/72 151/74 (99) Pulse Ox 98 100 98 O2 Delivery Room Air Room Air Room Air 05/04/20 05/04/20 05/05/20 05/05/20 20:00 22:37 02:56 07:00 Temp 98.2 97.7 97.9 98.2 97.7 97.9 Pulse 56 84 68 Resp 16 18 18 B/P (MAP) 142/73 (96) 152/82 (105) 145/78 (100) Pulse Ox 97 97 96 O2 Delivery Room Air Room Air Room Air Room Air 05/05/20 09:25 Pulse 68 B/P (MAP) 145/78 Intake and Output 05/04/20 05/04/20 05/05/20 15:00 23:00 07:00 Intake Total 550 ml 340 ml Output Total 1760 ml 325 ml 950 ml Balance -1210 ml 15 ml -950 ml Justifications for Admission Other Justification CARO ANN MD May 05, 2020 10:29
[2020-05-05] MEDS ORDERED: AMLO-187 PO (10:33)
--- NOTE | 2020-05-05 10:36 | SNU/HH DC ---
DISCHARGE WITH HOME HEALTH DISCHARGE INFORMATION: Discharge Date: May 05, 2020 Final Diagnosis: Problems ACUTE KIDNEY INJURY AND METABOLIC ENCEPHALOPATHY Medical Problems: (1) Confusion Status: Acute (2) Urinary retention Status: Acute (3) Urinary tract infection Status: Acute Condition on Discharge: Stable CODE STATUS: Code Status: Full HOME HEALTH: Face to Face: I certify this patient is under my care and that I, or a nurse practitioner or physician's exceptional children teacher assistant working with me, had a face to face encounter that meets the physician face to face encounter requirements with this patient on [05/05/20]. RN For Eval/Treatment: Yes Physical Therapy For: Evalulation/Treatment Occupational Therapy For: Evaluation/Treatment Pt Meets Homebound Status: Limited distance walking POST DISCHARGE ORDERS: Activity Instructions for Disc: Activity as tolerated, Avoid exertion, Progressive ambulation Weight Bearing Status after Di: No restrictions DIET AFTER DISCHARGE: Regular Wound/Incision Care: May get incision wet FOLLOW-UP: PCP to follow Home Health: DR. GOMEZ Follow up with: dr. gomez next week CERTIFICATION STATEMENT: Certification Statement: Certification Statement: Based on the above finding, I certify that this patient is confined to the home and needs intermittent prison care, physical therapy and/or speech therapy, or continues to need occupational therapy.~ This patient is under my care, and I have initiated the establishment of the plan of care.~ This patient will be followed by myself or a community physician who will periodically review the plan of care. Home Meds Active Scripts Amlodipine Besylate (AMLODIPINE BESYLATE) 10 Mg Tablet, 10 MG PO DAILY for HTN, #30 TAB Prov:CARO GOMEZ MD 05/05/20 Reported Medications Tamsulosin Hcl (TAMSULOSIN HCL) 0.4 Mg Cap.er.24h, 1 CAP PO DAILY 11/05/14 Discontinued Reported Medications Losartan Potassium (LOSARTAN POTASSIUM) 100 Mg Tablet, 100 MG PO DAILY for HYPERTENSION, TAB 05/04/20 Hydrochlorothiazide (Hydrochlorothiazide) 12.5 Mg Capsule, 12.5 MG PO DAILY for diuretic, CAP 05/04/20 Amlodipine Besylate (AMLODIPINE BESYLATE) 5 Mg Tablet, 1 TAB PO DAILY 11/05/14 Thiamine HCl (B-1) 100 Mg Tablet, 100 MG PO 11/05/14 Multivits-Min/Fa/Lycopene/Lut (CENTRUM SILVER TABLET) 1 Each Tablet, 1 EACH PO 11/05/14 Aspirin (ASPIR 81) 81 Mg Tablet.dr, 1 TAB PO DAILY 11/05/14 Hydroxychloroquine Sulfate (HYDROXYCHLOROQUINE SULFATE) 200 Mg Tablet, 1 TAB PO DAILY 11/05/14 Clopidogrel Bisulfate (CLOPIDOGREL) 75 Mg Tablet, 1 TAB PO DAILY 11/05/14 Prednisone (PREDNISONE) 5 Mg Tablet, 5 MG PO DAILY 11/05/14 Finasteride (FINASTERIDE) 5 Mg Tablet, 1 TAB PO DAILY 11/05/14 Valsartan/Hydrochlorothiazide (DIOVAN HCT 320-12.5 MG TAB) 1 Each Tablet, 1 TAB PO DAILY 11/05/14 Celecoxib (CELEBREX) 200 Mg Capsule, 1 CAP PO DAILY 11/05/14 CARO GOMEZ MD May 05, 2020 10:36
--- NOTE | 2020-05-05 10:42 | PDOC ---
Provider Note Date of Service: DATE: 05/05/20 TIME: 10:41 Provider Note discharge summary dictated # [id number] Justifications for Admission Other Justification CARO ANN MD May 05, 2020 10:42
[2020-05-05 11:00] VITALS: BP 134/67
--- NOTE | 2020-05-05 11:07 | PDOC ---
Renal-Progress Notes Subjective Notes Notes NO NEW COMPLAINTS History of Present Illness Hx of present illness STABLE Vitals Vitals Vital Signs Date Time Temp Pulse Resp B/P (MAP) Pulse Ox O2 Delivery O2 Flow Rate FiO2 05/05/20 09:25 68 145/78 05/05/20 07:00 97.9 18 96 Room Air 97.9 Weight Weight [ ] I.O. Intake and Output Intake and Output 05/05/20 07:00 Intake Total 890 ml Output Total 3035 ml Balance -2145 ml Intake Oral 890 ml Output Urine Total 3035 ml # Bowel Movements 3 Labs Labs Laboratory Tests Test 05/05/20 04:45 Sodium Level 141 mmol/L (136-145) Potassium Level 3.7 mmol/L (3.5-5.1) Chloride Level 107 mmol/L (98-107) Carbon Dioxide Level 23 mmol/L (21-32) Anion Gap 11 (6-14) Blood Urea Nitrogen 28 mg/dL (8-26) Creatinine 1.3 mg/dL (0.7-1.3) Estimated GFR (Cockcroft-Gault) 52.0 Glucose Level 79 mg/dL (70-99) Calcium Level 8.6 mg/dL (8.5-10.1) Review of Systems Constitutional: yes: alert Ears/Nose/Throat: Yes: no symptom reported Eyes: Yes: no symptom reported Pulmonary: Yes dyspnea Cardiovascular: Yes no symptom reported Gastrointestional: Yes: no symptom reported Genitourinary: Yes: no symptom reported Musculoskeletal: Yes: muscle stiffness Skin: Yes no symptom reported Psychiatric/Neurological: Yes: no symptom reported Endocrine: Yes: no symptom reported Physical Exam General Appearance: no apparent distress Skin: warm Respiratory: decreased breath sounds Heart: S1S2 Abdomen: soft, bowel sounds present Genitourinary: bladder flat Extremities: pulses present Neurology: alert Assessment Assessment IMP TOM-IMPROVING CR 2.9 TO 1.3-ESSENTIALLY RESOLVED MET ENCEPHALOPATHY-BETTER UNDERLYING DEMENTIA LABILE HTN PLAN D/C PLANS NOTED WILL SIGN OFF DRU STODDARD MD May 05, 2020 11:07
--- NOTE | 2020-05-05 11:26 | DS ---
DATE OF DISCHARGE: 05/05/2020 NEUROPSYCHIATRIST: Dr. Mcguire. FINAL DIAGNOSES: 1. Acute kidney injury on top of chronic kidney disease stage 3. 2. Metabolic encephalopathy, resolved. 3. Dementia. 4. Hypertension. 5. Peripheral arterial disease. 6. Anemia. HOSPITAL COURSE: The patient is an 89-year-old white male with a history of hypertension, chronic kidney disease stage 3, memory problems, peripheral arterial disease, osteoarthritis and benign prostatic hypertrophy, admitted to [facility] through the Emergency Room on 05/03/2020. The patient's son brought him to the Emergency Room at [facility] because of increased urine frequency and altered mental status. He was urinating about 3-4 times an hour. In the last 2-3 hours, the patient noted that he had increasing confusion, subsequently admitted to the hospital for further evaluation and treatment. In the Emergency Room, he had a white count of 8.8 with hemoglobin 10.1; BUN was 63, creatinine was 2.9. Baseline serum creatinine was 1.7. His urinalysis showed 20-40 red cells and occasional white cells. Chong catheter was placed. He had an ultrasound of his kidneys done, which showed no evidence of hydronephrosis in the right kidney, they could not see the left kidney well due to obscuring gas. Recent B12 and thyroid function tests were normal. He had a CAT scan of the head, which showed no acute abnormality when he was here. He received IV fluids and his BUN and creatinine normalized. His serum creatinine was down to 1.3 with hydration. His blood pressure was high. Amlodipine was increased from 5 to 10 mg every day and his losartan and hydrochlorothiazide were discontinued, his Flomax was continued. He did have a Chong catheter placed and I was going to remove it, but we may have to put it in when he is dismissed if he is retaining urine. So, I will discuss that with the nursing staff; and if he is retaining urine, he will have to see a urologist as an outpatient because he was having frequency of urination and his BUN and creatinine were elevated and it could also be secondary to some urine retention from his enlarged prostate. In any case, the patient will be dismissed to home with home health. The family declined [facility] facility and inpatient physical rehab facility. He will also be dismissed to home with home health on amlodipine 10 mg every day and Flomax 0.4 mg everyday and he will discontinue losartan and hydrochlorothiazide, make an appointment to see Dr. Arango in the office in 1 week, have home health and home physical therapy and occupational therapy. The family will be taking care of him at home. CARO ARANGO MD DR: WALTER/rochelle JOB#: [id number] / [id number]
--- NOTE | 2020-05-05 11:39 | NUR ---
SS following up with discharge planning. SS reviewed pt chart and discussed with pt RN. Pt is currently on room air. Discharge orders received for home with home healthcare. SS phoned and faxed discharge orders and referral to [facility], ; fax [phone]. Pt's RN notified.
--- NOTE | 2020-05-05 14:01 | NUR ---
Recvd order to discharge patient with malagon in and follow up in office in 1 week
--- NOTE | 2020-05-05 16:54 | NUR ---
Discharge Note: LOUISE GARCÍA Discharge instructions and discharge home medications reviewed with Family Member and a copy given. All questions have been answered and understanding verbalized. The following instructions and handouts were given: malagon care instructions, follow up instructions, home health care education, medication education Discontinued lines and drains: peripheral IV X 2, dressing clean, drya and intact. Patient discharged to home with home health via wheelchair
== END 2020-05-05 16:20 | disposition home health service (06) | DRG 682 ==
LOC: ER 22:17 → 2 NORTH 05-03 00:42
PROVIDERS: ADMIT Internal Medicine; ATTEND Internal Medicine
DX: N17.0 Acute kidney failure with tubular necrosis (principal); G93.41 Metabolic encephalopathy; N39.0 Urinary tract infection, site not specified; D64.9 Anemia, unspecified; F03.90 Unspecified dementia, unspecified severity, without behavioral disturbance, psychotic disturbance, mood disturbance, and anxiety; I12.9 Hypertensive chronic kidney disease with stage 1 through stage 4 chronic kidney disease, or unspecified chronic kidney disease; I73.9 Peripheral vascular disease, unspecified; N18.30 Chronic kidney disease, stage 3 unspecified; N40.1 Benign prostatic hyperplasia with lower urinary tract symptoms; R33.8 Other retention of urine; M19.90 Unspecified osteoarthritis, unspecified site; Z20.828 Contact with and (suspected) exposure to other viral communicable diseases; T50.2X5A Adverse effect of carbonic-anhydrase inhibitors, benzothiadiazides and other diuretics, initial encounter; T46.5X5A Adverse effect of other antihypertensive drugs, initial encounter; Z85.819 Personal history of malignant neoplasm of unspecified site of lip, oral cavity, and pharynx; Z87.891 Personal history of nicotine dependence; Z90.49 Acquired absence of other specified parts of digestive tract; Z92.21 Personal history of antineoplastic chemotherapy; Z92.3 Personal history of irradiation; Z98.42 Cataract extraction status, left eye; Z98.41 Cataract extraction status, right eye; Y92.89 Other specified places as the place of occurrence of the external cause
CPT/HCPCS: 36415; 70450; 71045; 76770; 80048; 80053; 81001; 82728; 83540; 83550; 85025; 93005; J3490; J7030; U0003; 97110-GP; 97116-GP; G0378

== ENCOUNTER 2020-06-27 02:20 | Emergency (ER) | payer MEDICARE, OTHER ==
[~2020-06-27] VITALS: Ht 182.9 cm; Wt 80.0 kg
[~2020-06-27 02:20] MED LIST changes: +AMLO-187 PO; +HYDR12.59 PO; +LOSA100T14 PO
[2020-06-27 02:40] VITALS: BP 165/79
--- NOTE | 2020-06-27 03:47 | PHYS DOC ---
Past Medical History Past Medical History: Other Additional Past Medical Histor: CANCER OF THROAT WITH RADIATION [place] Past Surgical History: Appendectomy Smoking Status: Former Smoker Alcohol Use: None Drug Use: None General Adult EDM: Chief Complaint: URINE CATHETER PROBLEM HPI: HPI: 89-year-old male past medical history significant for Alzheimer's dementia, hypertension and BPH with chronic indwelling Chong catheter for over a year, presents to the ED with complaints of " I need to pee," since around midnight. Patient here with his son who reports home health aide was unable to replace Chong earlier tonight. Last Chong change was 3 weeks ago. At that time they s ent off a urinalysis that did show an infection. Care is divided between patient's daughters and son and via miscommunication, antibiotics were sent but not refilled at the pharmacy 3 wks ago. Son reports patient's behavior is calm and typical for his baseline presentation. Son denies any confusion, falls, fever or abnormal behavior of patient. Review of Systems: Review of Systems: ROS: Limited due to dementia Heart Score: Risk Factors: Risk Factors: DM, Current or recent (<one month) smoker, HTN, HLP, family history of CAD, obesity. Risk Scores: Score 0 - 3: 2.5% MACE over next 6 weeks - Discharge Home Score 4 - 6: 20.3% MACE over next 6 weeks - Admit for Clinical Observation Score 7 - 10: 72.7% MACE over next 6 weeks - Early Invasive Strategies Current Medications: Current Medications Medications (Trade) Dose Ordered Sig/[facility] Start Time Stop Time Status Last Admin Dose Admin Fosfomycin Tromethamine (Monurol) 3 gm 1X ONCE 06/27/20 03:45 06/27/20 03:46 UNV Allergies: Allergies: Allergies Coded Allergies Type Severity Reaction Last Updated Verified No Known Drug Allergies 12/23/14 No Physical Exam: PE: Constitutional: Well developed, well nourished, no acute distress, non-toxic appearance. HENT: Normocephalic, atraumatic, Eyes: EOMI, conjunctiva normal, no discharge. Neck: Normal range of motion, supple, Cardiovascular: S1/2 present, regular rhythm Lungs & Thorax: Speaking in full sentences, bilateral equal chest rise, no tachypnea or increased work of breathing Abdomen: soft, no tenderness, Skin: Warm, dry, no erythema, no rash. [] Extremities: No tenderness, no cyanosis, bl anterior palmer psoriasis Neurologic: Alert/active/, normal motor function, normal sensory function, no focal deficits noted. [] Psychologic: Affect normal, judgement normal, mood normal-joyful and interactive EKG: EKG: [] Radiology/Procedures: Radiology/Procedures: [] Course & Med Decision Making: Course & Med Decision Making Pertinent Labs and Imaging studies reviewed. (See chart for details) Concern for urinary retention in the setting of BPH requiring indwelling Chong catheter. Catheter was placed in sterile fashion by RN. Will treat with fosfomycin and encourage outpatient antibiotics. Pt with asymptomatic hypertension. Will discharge home with strict ED return precautions were given for fever, flank pain, flulike symptoms, nausea, vomiting or abnormal behavior.. Encouraged urgent outpatient follow-up with PMD and urology. Life-threatening processes were considered but are low suspicion at this time, given history, physical exam and ED workup. Pt was educated on all prescription medications and adverse effects. All patient's questions were answered and pt was stable at time of discharge. Life/limb-threatening differential includes but is not limited to, sepsis, infection, prostatitis, pyelonephritis, Adrienne's gangrene or necrotizing fasciitis, abscess, abdominal aortic aneurysm/dissection, mesenteric ischemia, neoplasm, bowel obstruction or surgical abdomen. I spoken with the patient and her caregivers. I explained the patient's condition, diagnoses and treatment plan based on the information available to me at this time. I have answered the patient and her caregiver's questions and addressed any concerns. The patient and her caregivers have a good understanding of patient's diagnosis, condition and treatment plan as can be expected at this point. Vital signs have been stable. Patient's condition is stable and appropriate for discharge from the emergency department. Patient will pursue further outpatient evaluation with primary care physician or other designated or consulting physician as outlined in the discharge instructions. The patient and/or caregivers are agreeable to this plan of care and follow-up instructions have been explained in detail. The patient and/or caregivers have received these instructions in written form and have expressed an understanding of the discharge instructions. The patient and/or caregivers are aware that any significant change of condition or worsening of symptoms should prompt immediate return to this or the closest emergency department or call to 911. Ciara Disclaimer: Ciara Disclaimer: This electronic medical record was generated, in whole or in part, using a voice recognition dictation system. Departure Departure Impression: Primary Impression: Encounter for Chong catheter replacement Additional Impression: BPH (benign prostatic hyperplasia) Disposition: 01 DC HOME SELF CARE/HOMELESS Condition: STABLE Referrals: CARO ANN MD (PCP) Patient Instructions: Chong Catheter Care, Adult, Urinary Tract Infection Additional Instructions: FOLLOW UP WITH UROLOGY: [facility] urologists [facility] [address] [place] [address] appointments: [phone] EMERGENCY DEPARTMENT GENERAL DISCHARGE INSTRUCTIONS Thank you for coming to [facility] Emergency Department (ED) today and trusting us with you care. We trust that you had a positive experience in our Emergency Department. If you wish to speak to the department management, you may call the Director at [phone]. YOUR FOLLOW UP INSTRUCTIONS ARE FOLLOWS: 1. Do you have a private Doctor? If you do not have a private doctor, please ask for a resource list of physicians or clinics that may be able to assist you with follow up care. 2. The Emergency Physicain has interpreted your x-rays. The X-Ray specialist will also review them. If there is a change in the findings, you will be notified in 48 hours when at all possible. 3. A lab test or culture has been done, your results will be reviewed and you will be notified if you need a change in treatment. ADDITIONAL INSTRUCTIONS AND INFORMATION: 1. Your care today has been supervised by a physician who is specially trained in emergency care. Many problems require more than one evaluation for a complete diagnosis and treatment. We recommend that you schedule your follow up appointment as recommended to ensure complete treatment of you illness or injury. If you are unable to obtain follow up care and continue to have a problem, or if your condition worsens, we recommend that you return to the ED. 2. We are not able to safely determine your condition over the phone nor are we able to give sound medical advice over the phone. For these safety reasons, if you call for medical advice we will ask you to come to the ED for further evaluation. 3. If you have any questions regarding these discharge instructions please call the ED at [phone]. SAFETY INFORMATION: In the interest of safety, wellness, and injury prevention; we encourage you to wear your sealbelt, if you smoke; quite smoking, and we encourage family to use a protective helmet for bicycling and other sporting events that present an increased risk for head injury. IF YOUR SYMPTOMS WORSEN OR NEW SYMPTOMS DEVELOP, OR YOU HAVE CONCERNS ABOUT YOUR CONDITION; OR IF YOUR CONDITION WORSENS WHILE YOU ARE WAITING FOR YOUR FOLLOW UP APPOINTMENT; EITHER CONTACT YOUR PRIMARY CARE DOCTOR, THE PHYSICIAN WHOSE NAME AND NUMBER YOU WERE GIVEN, OR RETURN TO THE ED IMMEDIATELY. [facility] DO Jun 27, 2020 03:47
[2020-06-27] MEDS ORDERED: FOSFOMYCIN TROMETHAMINE 3 GM PACKET PO ONE (04:00)
== END 2020-06-27 04:34 | disposition home or self-care (01) ==
LOC: ER 02:20
DX: T83.098A Other mechanical complication of other urinary catheter, initial encounter (principal); N40.1 Benign prostatic hyperplasia with lower urinary tract symptoms; Z87.891 Personal history of nicotine dependence; Z90.89 Acquired absence of other organs; Y82.8 Other medical devices associated with adverse incidents; Y92.89 Other specified places as the place of occurrence of the external cause
CPT/HCPCS: 51702; 99284

== ENCOUNTER 2020-07-23 18:15 | Emergency (ER) | payer MEDICARE, OTHER ==
[~2020-07-23] VITALS: Ht 182.9 cm; Wt 81.0 kg
[2020-07-23 19:30] VITALS: BP 194/111
[2020-07-23] MEDS ORDERED: LIDOCAINE 2% JELLY 6ML IN APPLICATOR. ONE (19:32)
--- NOTE | 2020-07-23 19:41 | PHYS DOC ---
Past Medical History Past Medical History: Other Additional Past Medical Histor: CANCER OF THROAT WITH RADIATION [place] Past Surgical History: Appendectomy Smoking Status: Former Smoker Alcohol Use: None Drug Use: None General Adult EDM: Chief Complaint: URINARY RETENTION HPI: HPI: Patient is a 89-year-old male who presents with daughter for Chong catheter issues. Patient has long history of utilizing Chong catheters at home, home health came and placed Chong catheter yesterday evening but patient is concerned it was not placed in appropriate position. States he is not urinated since 0700 hrs. today, reports he feels like he has a distended and full bladder and pres ents for evaluation. No COVID-19 contact, fever, chest pain, shortness of breath, abdominal pain, UTI-like symptoms, no changes in bowel function Review of Systems: Review of Systems: Fourteen body systems of review of systems have been reviewed. See HPI for pertinent positives and negative responses, other méndez all other systems are negative, non-pertinent or non-contributory Heart Score: HEART Score for Chest Pain: HEART Score for Chest Pain Response (Comments) Value History Slighlty/Non-Suspicious 0 Age > 65 2 Risk Factors >3 Risk Factors or Hx CAD 2 Total 4 Risk Factors: Risk Factors: DM, Current or recent (<one month) smoker, HTN, HLP, family history of CAD, obesity. Risk Scores: Score 0 - 3: 2.5% MACE over next 6 weeks - Discharge Home Score 4 - 6: 20.3% MACE over next 6 weeks - Admit for Clinical Observation Score 7 - 10: 72.7% MACE over next 6 weeks - Early Invasive Strategies Current Medications: Current Medications Medications (Trade) Dose Ordered Sig/Alejandra Start Time Stop Time Status Last Admin Dose Admin Lidocaine HCl (Glydo (Lidocaine) Jelly) 6 indra [email or web address] ONCE 07/23/20 19:32 07/23/20 19:33 DC Allergies: Allergies: Allergies Coded Allergies Type Severity Reaction Last Updated Verified No Known Drug Allergies 12/23/14 No Physical Exam: PE: Constitutional: Well developed, well nourished, no acute distress, non-toxic appearance. HENT: Normocephalic, atraumatic, bilateral external ears normal, oropharynx moist, no oral exudates, nose normal. Eyes: PERRLA, EOMI, conjunctiva normal, no discharge. Neck: Normal range of motion, no tenderness, supple, no stridor. Cardiovascular: Heart rate regular, sinus rhythm, no murmurs rubs or gallops Lungs & Thorax: Bilateral breath sounds clear to auscultation Abdomen: Bowel sounds normal, soft, no tenderness, no masses, no pulsatile masses. Nonsurgical abdomen, no peritoneal signs : Circumcised penis with Chong catheter in place, testicles bilaterally descended no palpable or visual abnormalities noted Skin: Warm, dry, no erythema, no rash. Back: No tenderness, no CVA tenderness. Extremities: No tenderness, no cyanosis, no clubbing, ROM intact, no edema. Neurologic: Alert and oriented X 3, grossly normal motor & sensory function, no focal deficits noted. Psychologic: Affect normal, judgement normal, mood normal. Current Patient Data: Vital Signs: Vital Signs Date Time Temp Pulse Resp B/P (MAP) Pulse Ox O2 Delivery O2 Flow Rate FiO2 07/23/20 19:30 97.9 85 18 194/111 (138) 97 Room Air 97.9 EKG: EKG: [] Radiology/Procedures: Radiology/Procedures: [] Course & Med Decision Making: Course & Med Decision Making Discussed with the patient all findings and diagnostic testing. I discussed most likely diagnosis of misplaced Chong catheter. Appeared patient's balloon cuff was inflated prior to reaching optimal position in patient's bladder. Chong catheter was removed new catheter subsequently placed in adequate position with significant relief in retaining urine and patient's overall symptoms. I stressed need for close outpatient follow-up to review today's ER visit. Strict return precautions were also discussed at length with good understanding by patient. Patient voiced understanding and agreement with the plan. Patient knows to come back for repeat evaluation if concerning signs or symptoms present prior to outpatient follow-up. Hemodynamically stable, ambulatory and well-appearing at time of disposition. Dragon Disclaimer: Inverted Edge Disclaimer: This electronic medical record was generated, in whole or in part, using a voice recognition dictation system. Departure Departure Impression: Primary Impression: Chong catheter problem Disposition: 01 DC HOME SELF CARE/HOMELESS Condition: IMPROVED Referrals: CARO ANN MD (PCP) Patient Instructions: Chong Catheter Care, Adult Additional Instructions: As discussed prior to ER departure, please call your primary care physician and neurologist to discuss ER visit today. It appeared that your Chong catheter was inflated prior to reaching bladder and was in suboptimal position causing your symptoms and inability to urinate today. Your Chong catheter was exchanged and adequate urine was expelled. There is no further diagnostic work-up or intervention required at this time. If any concerning signs or symptoms present prior to outpatient follow-up please do not hesitate to come back for repeat patient. It was a pleasure to take care of you and I wish you the best going forward TARIQ JAMES DO Jul 23, 2020 19:40
[2020-07-23] MEDS ORDERED: LIDOCAINE 2% JELLY 6ML IN APPLICATOR. MM ONE (20:00)
== END 2020-07-23 20:30 | disposition home or self-care (01) ==
LOC: ER 18:15
DX: T83.098A Other mechanical complication of other urinary catheter, initial encounter (principal); Z90.89 Acquired absence of other organs; Z87.891 Personal history of nicotine dependence; Z85.89 Personal history of malignant neoplasm of other organs and systems
CPT/HCPCS: 51702; 99284

== ENCOUNTER 2020-07-25 07:54 | Emergency (ER) | payer MEDICARE, OTHER ==
[~2020-07-25] VITALS: Ht 182.9 cm; Wt 81.0 kg
[~2020-07-25 07:54] MED LIST changes: -VALS1TAB18 PO; +VALS1TAB19 PO
--- NOTE | 2020-07-25 08:32 | PHYS DOC ---
Past Medical History Past Medical History: Hypertension, Other Additional Past Medical Histor: CANCER OF THROAT WITH RADIATION [place], ENLARGED PROSTATE Past Surgical History: Appendectomy Smoking Status: Never Smoker Alcohol Use: None Drug Use: None Adult General Chief Complaint Chief Complaint: URINE CATHETER PROBLEM HPI HPI Patient is a 89 year old male presenting the emergency department for concern for obstruction of his Chong catheter. Patient had Chong placed 2 days ago for BPH. Patient last 24 hours noted worsening sensation of pressure over the suprapubic region and leaking around the Chong. Denies any fever, chills, nausea, vomiting, dizziness lightheadedness Review of Systems Review of Systems Constitutional: Denies fever or chills [] Eyes: Denies change in visual acuity, redness, or eye pain [] HENT: Denies nasal congestion or sore throat [] Respiratory: Denies cough or shortness of breath [] Cardiovascular: No additional information not addressed in HPI [] GI: Denies abdominal pain, nausea, vomiting, bloody stools or diarrhea [] : Denies dysuria or hematuria [] Musculoskeletal: Denies back pain or joint pain [] Integument: Denies rash or skin lesions [] Neurologic: Denies headache, focal weakness or sensory changes [] Endocrine: Denies polyuria or polydipsia [] All other systems were reviewed and found to be within normal limits, except as documented in this note. Allergies Allergies Allergies Coded Allergies Type Severity Reaction Last Updated Verified No Known Drug Allergies 12/23/14 No Physical Exam Physical Exam Constitutional: Well developed, well nourished, no acute distress, non-toxic appearance. [] HENT: Normocephalic, atraumatic, bilateral external ears normal, oropharynx moist, no oral exudates, nose normal. [] Eyes: PERRLA, EOMI, conjunctiva normal, no discharge. [] Neck: Normal range of motion, no tenderness, supple, no stridor. [] Cardiovascular:Heart rate regular rhythm, no murmur [] Lungs & Thorax: Bilateral breath sounds clear to auscultation [] Abdomen: Bowel sounds normal, soft, no tenderness, no masses, no pulsatile masses. [] Skin: Warm, dry, no erythema, no rash. [] Back: No tenderness, no CVA tenderness. [] Extremities: No tenderness, no cyanosis, no clubbing, ROM intact, no edema. [] Neurologic: Alert and oriented X 3, normal motor function, normal sensory function, no focal deficits noted. [] Psychologic: Affect normal, judgement normal, mood normal. [] Current Patient Data Vital Signs Vital Signs Date Time Temp Pulse Resp B/P (MAP) Pulse Ox O2 Delivery O2 Flow Rate FiO2 07/25/20 08:05 98.7 79 18 210/100 (136) 97 Room Air 98.7 Radiology/Procedures Radiology/Procedures [] Course & Med Decision Making Course & Med Decision Making Pertinent Labs and Imaging studies reviewed. (See chart for details) 89M presenting with an obstructed urinary catheter. This was replaced with nursing staff and clots removed. In addition approximately 1000 cc of urine returned after the new Chong was placed. Will discharge home with urology follow-up Dragon Disclaimer Dragon Disclaimer This electronic medical record was generated, in whole or in part, using a voice recognition dictation system. Departure Departure Impression: Primary Impression: Chong catheter problem Disposition: 01 DC HOME SELF CARE/HOMELESS Condition: GOOD Referrals: CARO ANN MD (PCP) Patient Instructions: Chong Catheter Care, Adult KELSEY KLINE MD Jul 25, 2020 08:32
[2020-07-25 09:02] VITALS: BP 126/79
== END 2020-07-25 09:11 | disposition home or self-care (01) ==
LOC: ER 07:54
DX: T83.098A Other mechanical complication of other urinary catheter, initial encounter (principal); I10 Essential (primary) hypertension; Z90.89 Acquired absence of other organs; Y84.6 Urinary catheterization as the cause of abnormal reaction of the patient, or of later complication, without mention of misadventure at the time of the procedure; Y92.89 Other specified places as the place of occurrence of the external cause
CPT/HCPCS: 51702; 99284

== ENCOUNTER 2020-08-03 19:27 | Emergency (ER) | payer MEDICARE, OTHER ==
[~2020-08-03] VITALS: Ht 185.4 cm; Wt 84.0 kg
--- NOTE | 2020-08-03 20:23 | PHYS DOC ---
Past Medical History Past Medical History: Hypertension, Other Additional Past Medical Histor: CANCER OF THROAT WITH RADIATION TX, ENLARGED PROSTATE Past Surgical History: Appendectomy Smoking Status: Never Smoker Alcohol Use: None Drug Use: None Adult General Chief Complaint Chief Complaint: URINE CATHETER PROBLEM HPI HPI Patient is a 89 year old with past history of hypertension and urinary retention now presenting the emergency department for malfunctioning urinary catheter. Patient states that he Chong placed earlier this morning by nursing staff approximate 1 hour prior to arrival and noticed pain around the urinary site and leaking around the penile meatus. Denies any fever, chills, nausea, vomiting, injury to the area Review of Systems Review of Systems Constitutional: Denies fever or chills [] Eyes: Denies change in visual acuity, redness, or eye pain [] HENT: Denies nasal congestion or sore throat [] Respiratory: Denies cough or shortness of breath [] Cardiovascular: No additional information not addressed in HPI [] GI: Denies abdominal pain, nausea, vomiting, bloody stools or diarrhea [] : Denies dysuria or hematuria [] Musculoskeletal: Denies back pain or joint pain [] Integument: Denies rash or skin lesions [] Neurologic: Denies headache, focal weakness or sensory changes [] Endocrine: Denies polyuria or polydipsia [] All other systems were reviewed and found to be within normal limits, except as documented in this note. Current Medications Current Medications Current Medications Medications (Trade) Dose Ordered Sig/[facility] Start Time Stop Time Status Last Admin Dose Admin Lidocaine HCl (Glydo (Lidocaine) Jelly) 1 indra 1X ONCE 08/03/20 20:45 08/03/20 20:46 DC 08/03/20 20:41 1 INDRA Allergies Allergies Allergies Coded Allergies Type Severity Reaction Last Updated Verified No Known Drug Allergies 12/23/14 No Physical Exam Physical Exam Constitutional: Well developed, well nourished, no acute distress, non-toxic appearance. [] HENT: Normocephalic, atraumatic, bilateral external ears normal, oropharynx moist, no oral exudates, nose normal. [] Eyes: PERRLA, EOMI, conjunctiva normal, no discharge. [] Neck: Normal range of motion, no tenderness, supple, no stridor. [] Cardiovascular:Heart rate regular rhythm, no murmur [] Lungs & Thorax: Bilateral breath sounds clear to auscultation [] Abdomen: Bowel sounds normal, soft, no tenderness, no masses, no pulsatile masses. [] Skin: Warm, dry, no erythema, no rash. [] Back: No tenderness, no CVA tenderness. [] Extremities: No tenderness, no cyanosis, no clubbing, ROM intact, no edema. [] Neurologic: Alert and oriented X 3, normal motor function, normal sensory function, no focal deficits noted. [] Psychologic: Affect normal, judgement normal, mood normal. [] Current Patient Data Vital Signs Vital Signs Date Time Temp Pulse Resp B/P (MAP) Pulse Ox O2 Delivery O2 Flow Rate FiO2 08/03/20 20:42 64 20 205/90 (128) 97 Room Air 08/03/20 19:35 98.9 98.9 EKG EKG [] Radiology/Procedures Radiology/Procedures [] Course & Med Decision Making Course & Med Decision Making Pertinent Labs and Imaging studies reviewed. (See chart for details) 89M with malfunctioning Chong. Patient had Chong replaced without any significant issues. New Chong appears to be functioning well. At this time discharge Dragon Disclaimer Dragon Disclaimer This electronic medical record was generated, in whole or in part, using a voice recognition dictation system. Departure Departure Impression: Primary Impression: Urinary retention Disposition: 01 DC HOME SELF CARE/HOMELESS Condition: GOOD Referrals: CARO ANN MD (PCP) Patient Instructions: Urinary Retention, Acute, Male Additional Instructions: EMERGENCY DEPARTMENT GENERAL DISCHARGE INSTRUCTIONS Thank you for coming to [facility] Emergency Department (ED) tod ay and trusting us with you care. We trust that you had a positive experience in our Emergency Department. If you wish to speak to the department management, you may call the Director at [phone]. YOUR FOLLOW UP INSTRUCTIONS ARE FOLLOWS: 1. Do you have a private Doctor? If you do not have a private doctor, please ask for a resource list of physicians or clinics that may be able to assist you with follow up care. 2. The Emergency Physicain has interpreted your x-rays. The X-Ray specialist will also review them. If there is a change in the findings, you will be notified in 48 hours when at all possible. 3. A lab test or culture has been done, your results will be reviewed and you will be notified if you need a change in treatment. ADDITIONAL INSTRUCTIONS AND INFORMATION: 1. Your care today has been supervised by a physician who is specially trained in emergency care. Many problems require more than one evaluation for a complete diagnosis and treatment. We recommend that you schedule your follow up appointment as recommended to ensure complete treatment of you illness or injury. If you are unable to obtain follow up care and continue to have a problem, or if your condition worsens, we recommend that you return to the ED. 2. We are not able to safely determine your condition over the phone nor are we able to give sound medical advice over the phone. For these safety reasons, if you call for medical advice we will ask you to come to the ED for further evaluation. 3. If you have any questions regarding these discharge instructions please call the ED at [phone]. SAFETY INFORMATION: In the interest of safety, wellness, and injury prevention; we encourage you to wear your sealbelt, if you smoke; quite smoking, and we encourage family to use a protective helmet for bicycling and other sporting events that present an increased risk for head injury. IF YOUR SYMPTOMS WORSEN OR NEW SYMPTOMS DEVELOP, OR YOU HAVE CONCERNS ABOUT YOUR CONDITION; OR IF YOUR CONDITION WORSENS WHILE YOU ARE WAITING FOR YOUR FOLLOW UP APPOINTMENT; EITHER CONTACT YOUR PRIMARY CARE DOCTOR, THE PHYSICIAN WHOSE NAME AND NUMBER YOU WERE GIVEN, OR RETURN TO THE ED IMMEDIATELY. KELSEY KLINE MD Aug 03, 2020 20:23
[2020-08-03] MEDS ORDERED: LIDOCAINE 2% JELLY 6ML IN APPLICATOR. ONE (20:37)
[2020-08-03] MEDS ORDERED: LIDOCAINE 2% JELLY 6ML IN APPLICATOR. MM ONE (20:45)
[2020-08-03 21:12] VITALS: BP 206/95
== END 2020-08-03 21:57 | disposition home or self-care (01) ==
LOC: ER 19:27
DX: R33.9 Retention of urine, unspecified (principal); I10 Essential (primary) hypertension; Z90.89 Acquired absence of other organs; Z85.9 Personal history of malignant neoplasm, unspecified
CPT/HCPCS: 51702; 99284